=== PATIENT | female | born 1955 | race Caucasian/White ===

== ENCOUNTER 2017-08-04 07:30 | Inpatient (IN) | payer MEDICARE, MEDICAID ==
[~2017-08-04 07:30] MED LIST: Buffered Lidocaine 0.9% SYRIN* 5 ML/SYR SYRINGE INTRADERM ONE; Dexamethasone IV* 4 MG/ML 1 ML (4 MG) IV SLOW PU ONE; Famotidine IV* 10 MG/ML 2 ML (20 mg) IV ONE
[2017-08-04] MEDS ORDERED: Dexamethasone IV* 4 MG/ML 1 ML (4 MG) ONE (08:24)
[2017-08-04] MEDS ORDERED: ceFAZolin 1 GM in Dextrose (*) 1 GM/50 ML BAG IVPB ONE (08:24)
[2017-08-04] MEDS ORDERED: Famotidine IV* 10 MG/ML 2 ML (20 mg) ONE (08:24)
[2017-08-04] MEDS ORDERED: Clindamycin 900 MG IVPREMIX(* 900 MG/50 ML SDV IV ONE (08:25)
[2017-08-04] MEDS ORDERED: ceFAZolin 2 GM PREMIX (*) 2 GM/50 ML BAG IVPB ONE (08:25)
[2017-08-04] MEDS ORDERED: Heparin VIAL(*) 5000 UNITS/ML VIAL (FIVE THOUSAND) ONE (08:36)
[2017-08-04] MEDS ORDERED: fentaNYL* 50 MCG/ML 5 ML VIAL (250 MCG VIAL) ONE (10:26)
[2017-08-04] MEDS ORDERED: Midazolam* 1 MG/ML 5 ML VIAL (5 MG) ONE (10:26)
[2017-08-04] MEDS ORDERED: Atracurium* 10 MG/ML 10 ML VIAL ONE (10:26)
[2017-08-04] MEDS ORDERED: Ondansetron INJ* 2 MG/ML VIAL ONE (10:27)
[2017-08-04] MEDS ORDERED: Propofol* 10 MG/ML 20 ML BTL IV PUSH ONE (10:27)
[2017-08-04] MEDS ORDERED: Lidocaine 2% PF * 5 ML VIAL ONE (10:27)
[2017-08-04] MEDS ORDERED: Ketorolac INJ* 30 MG/ML 1 ML VIAL ONE (10:27)
[2017-08-04] MEDS ORDERED: Bupivacaine 0.25% SDV* 30 ML ONE (11:04)
[2017-08-04] MEDS ORDERED: Methylene Blue 0.5 %* 50 MG/10 ML AMP IV ONE (11:04)
[2017-08-04] MEDS ORDERED: Glycopyrrolate IV* 0.2 MG/ML 1 ML VIAL ONE (11:49)
[2017-08-04] MEDS ORDERED: fentaNYL* 50 MCG/ML 2 ML VIAL (100 MCG VIAL) ONE ×2 (11:57→12:38)
[2017-08-04] MEDS ORDERED: Ondansetron INJ* 2 MG/ML VIAL IV PRN ×2 (12:09→13:16)
[2017-08-04] MEDS ORDERED: Scopolamine 1.5 mg* PATCH TRANSDERM PRN (12:09)
[2017-08-04] MEDS ORDERED: DiMENhydriNATE IV* 50 MG/ML VIAL IV PUSH PRN (12:09)
[2017-08-04] MEDS ORDERED: fentaNYL* 50 MCG/ML 2 ML VIAL (100 MCG VIAL) IV PRN (12:09)
[2017-08-04] MEDS ORDERED: HYDROmorphone INJ* 1 MG/ML CARPUJECT SYRINGE IV PRN (12:09)
[2017-08-04] MEDS ORDERED: Naloxone* 0.4 MG/ML 1 ML VIAL IV PRN (12:09)
[2017-08-04] MEDS ORDERED: diPHENhydraMINE IV* 50 MG/ML 1 ml VIAL (BENADRYL) SLOW PUSH PRN (13:16)
[2017-08-04] MEDS ORDERED: Acetaminophen ADULT LIQ* 650 MG/20.3 ML UDC PO PRN (13:16)
[2017-08-04] MEDS ORDERED: Dextrose 50% Syringe 50 ML* 25 GM/50 ML SYRINGE IV PUSH PRN (13:22)
--- NOTE | 2017-08-04 13:26 | OP ---
Operative Report - Blank - Operative Report Date of Operation: 08/04/17 Note: Pre-op: Morbid obesity Post-op: Same Procedure: Laparoscopic sleeve gastrectomy Surgeon: Dr. Velasquez Risk Management Director: ROSHAN Cortez Anesthesia: GETA Fluids: LR 1,500 cc Drains: None Catheter: None Specimen: Portion of stomach Findings: See dictated op note
[2017-08-04] MEDS: Ketorolac INJ* 30 MG/ML 1 ML VIAL IV PRN ×2 (16:37→22:49)
[2017-08-04] MEDS: Insulin LISPRO* 1 UNITS UNIT SUBCUT SCH (18:06)
[2017-08-04] MEDS: HYDROmorphone INJ* 2 MG/ML CARPUJECT SYRINGE IV PRN (18:45)
[2017-08-04] MEDS: Heparin VIAL(*) 5000 UNITS/ML VIAL (FIVE THOUSAND) SUBCUT SCH (21:43)
[2017-08-04] MEDS: Famotidine IV* 10 MG/ML 2 ML (20 mg) IV SLOW PU SCH (21:46)
[2017-08-05] MEDS: Insulin LISPRO* 1 UNITS UNIT SUBCUT SCH ×4 (00:14→18:33)
[2017-08-05] MEDS: HYDROmorphone INJ* 2 MG/ML CARPUJECT SYRINGE IV PRN ×2 (00:20→16:57)
[2017-08-05] MEDS: Ketorolac INJ* 30 MG/ML 1 ML VIAL IV PRN (04:37)
[2017-08-05] MEDS: Heparin VIAL(*) 5000 UNITS/ML VIAL (FIVE THOUSAND) SUBCUT SCH ×3 (06:13→21:07)
--- NOTE | 2017-08-05 08:38 | SURGPN ---
Subjective - Introduction -: Admitted on: 08/04/2017 Patient's surgical date: 08/04/2017 Procedure completed: Laparoscopic sleeve gastrectomy - Medications -: Active Medications Generic Name Dose Route Start Last Admin Trade Name Freq PRN Reason Stop Dose Admin Acetaminophen 650 mg 08/04/17 13:16 Tylenol Adult Liq* PO Q6H PRN Temp > 101 F Or Mild Pain Hydrocodone Bitart/Acetaminophen 15 ml 08/04/17 13:16 Nortab 7.5/325 Liq* PO Q6H PRN PAIN Buspirone HCl 15 mg 08/05/17 09:00 Buspar Tab * PO QID PATRICE Dextrose 12.5 gm 08/04/17 13:22 D50w Syringe 50 Ml* IV PUSH .FOR FS < 60 - SS PRN FS < 60 Diphenhydramine HCl 25 mg 08/04/17 13:16 Benadryl Iv* SLOW PUSH Q6H PRN ITCHING Famotidine 20 mg 08/04/17 21:00 08/04/17 21:46 Pepcid Iv* IV SLOW PU 20 mg BID PATRICE Administration Gabapentin 300 mg 08/05/17 09:00 Neurontin Cap(*) PO TID PATRICE Heparin Sodium (Porcine) 5,000 units 08/04/17 22:00 08/05/17 06:13 Heparin Vial(*) SUBCUT 5,000 units Q8HR PATRICE Administration Hydromorphone HCl 0.5 mg 08/04/17 13:16 08/05/17 00:20 Dilaudid Inj* IV 0.5 mg Q3H PRN Administration PAIN Potassium Chloride/Dextrose 1,000 mls @ 125 mls/hr 08/05/17 13:19 D5w 1/2 Ns Kcl 20 Meq 1000 Ml* IV PER RATE PATRICE Lactated Ringer's 1,000 mls @ 150 mls/hr 08/04/17 14:00 08/05/17 04:45 Lactated Ringers 1000 Ml Bag* IV 08/05/17 13:19 150 mls/hr PER RATE PATRICE Administration Insulin Human Lispro 0 units 08/04/17 18:00 08/05/17 06:14 Humalog* SUBCUT 2 unit Q6HR PATRICE Administration Protocol Ketorolac Tromethamine 30 mg 08/04/17 13:16 08/05/17 04:37 Toradol Inj* IV 08/06/17 13:19 30 mg Q6H PRN Administration PAIN Non-Formulary Medication 150 mg 08/05/17 09:00 Bupropion Tab* PO BID PATRICE Ondansetron HCl 4 mg 08/04/17 13:16 08/04/17 18:43 Zofran Inj* IV 4 mg Q6H PRN Administration NAUSEA/VOMITING Pharmacy Profile Note 1 note 08/07/17 06:00 Scopolamine Patch Remove* PATCH OFF 08/07/17 06:01 0600 ONE - Comments Comments: Reports feeling better this AM. Patient was seen and examined with Dr. Vleasquez present at bedside. She had a tough time sleeping last night due to back pain. She usually sleep on a recliner chair at home. Denies abdominal pain, nausea, vomiting, fever or chills. Has been ambulating around the [place]. Feels anxious at times, would like to resume her anxiety meds. Objective - Objective -: Awake and alert, sitting on her chair. Appears comfortable and in NAD. - Intake and Output -: Intake & Output 08/03/17 08/04/17 08/05/17 08/06/17 06:59 06:59 06:59 06:59 Intake Total 3666 Output Total 50 50 Balance 3616 -50 Weight 318 lb Intake: IV Fluids 3666 LR 3666 Oral 0 Output: Urine 50 50 Other: Estimated Void Large # Bowel Movements 0 # Voids 1 Patient has urinary incontinence. Had multiple wet pads due to coughing. Urinary output was difficult to estimate last night. Surgical Physical Exam - Comments -: Vitals reviewed, Tmax 99.1, HR 90s over night, 76 this AM Lungs CTA bilat. Heart RRR, no murmurs Abdomen soft, NT, ND. Incisions clean, dry and intact. No guarding, rigidity or rebound tenderness. Ext. without edema POC glucose checks reviewed, patient covered with Lispro per sliding scale Assessment and Plan - Assessment -: A 61 y/o female, POD#1, s/p laparoscopic sleeve gastrectomy, doing well. - Plan Additional Comments: Continue to ambulate as tolerated Bariatric clear liquids today Will resume her Buspar and Gabapentin Home in AM 08/06
[2017-08-05] MEDS: Gabapentin CAP(*) 300 MG PO SCH ×3 (09:23→21:00)
[2017-08-05] MEDS: Famotidine IV* 10 MG/ML 2 ML (20 mg) IV SLOW PU SCH ×2 (09:34→21:01)
[2017-08-05] MEDS: busPIRone TAB* 15 MG PO SCH ×4 (09:34→21:01)
[2017-08-05] MEDS: buPROPion SR TAB.SR* 150 MG PO SCH ×2 (09:34→21:00)
[2017-08-05] MEDS: D5W 1/2 NS KCl 20 Meq 1000 ML* 1,000 ML IV SCH ×2 (11:25→19:17)
[2017-08-05] MEDS: HYDROcodone/ACET. 7.5/325 LIQ* 15 ML UDC PO PRN ×2 (12:41→21:25)
--- NOTE | 2017-08-05 14:24 | OP ---
CC: Dr. Josselyn Esquivel; [facility] * DATE OF OPERATION: 08/04/17 - ROOM #353 DATE OF : 57 SURGEON: Patrick Velasquez MD MARINE DIESEL MECHANIC: ROSHAN Carlos ANESTHESIOLOGIST: Dr. Montoya. ANESTHESIA: General anesthesia. PRE-OP DIAGNOSES: Clinically severe obesity, diabetes, hypertension, hypercholesterolemia. POST-OP DIAGNOSES: Clinically severe obesity, diabetes, hypertension, hypercholesterolemia. OPERATIVE PROCEDURE: Laparoscopic sleeve gastrectomy. INDICATIONS: Ms. Grant is a 61-year-old female worked up as an outpatient with diagnosis of clinically severe obesity, presented on same day of surgery for laparoscopic sleeve gastrectomy. ESTIMATED BLOOD LOSS: Minimal blood loss. FLUIDS: 1500 cc of crystalloid fluid given. SPECIMEN: Portion of stomach. DESCRIPTION OF PROCEDURE: The patient was identified in the preoperative area. The case was discussed with her, consent was signed. She was marked and taken to the operating room and placed on the operating table in supine position. Preoperative antibiotics were given. Sequential devices were placed on bilateral lower extremities. General anesthesia was induced. The patient's abdomen was prepped and draped in standard surgical fashion and a time-out was performed. Staying away from the indurated panniculus, we made a right upper quadrant incision at the site, two fingerbreadths below the costal margin and the mid clavicular line. This was deepened down to the fascia, which was elevated and a Veress needle was inserted. Abdomen was allowed to insufflate to a pressure of 50 mmHg. The patient tolerated the insufflation well. An upper midline incision was made and 12 mm trocar was inserted through this. Camera was placed and we reviewed the abdomen. The Veress needle was then removed and it showed no injury of underlying structures. We then placed two 5 mm in the left upper quadrant and 12 mm in the right upper quadrant. Table was placed in a steep reverse Trendelenburg. The liver appeared somewhat bulky along with the spleen, but this liver was retracted out of the way with a Ildefonso retractor inserted through a subxiphoid incision and we could see gastroesophageal fat pad. This fat pad was grasped and retracted to his right lower quadrant and blunt dissection was carried out to expose the left enrike. Next, the lesser sac was entered from 6 cm proximal to the pylorus along the greater curvature. We took the vasculature of the greater curvature right up to the previously dissected area. Posterior attachments were similarly taken until we completely rotated the stomach on its axis. We did remove an enlarged fat pad at the top of the stomach. This was fully ligated and we placed an Endoloop around it so that we could retrieve it later as it would not fit through the trocars. Next, a sleeve stomach was created using 60 mm purple ALEX stapling with reinforcements and doing this over a 40-[place] bougie. We started our staple line 6 cm proximal to the pylorus along the greater curvature, extending this towards the incisura, but making sure the bougie was in place prior to firing this. Additional loads were fired, hugging the bougie right up to our initial dissection site. The stomach was fully transected, the bougie was removed. Hemostasis was excellent. The staple line appeared intact without corkscrewing. We did place a clip at the area of the first staple line on the stomach's mesentery, although this bleeding had stopped already. The resected stomach was then placed in an endoscopic retrieval bag along with the piece of fat pad, which was then brought out through the right upper quadrant port site after dilating the port site. This was passed off as specimen. We then closed it with a Weck fascial closure device using an 0 Polysorb stitch. The abdomen was allowed to collapse. The Ildefonso retractor was removed under direct vision. Again, hemostasis was excellent and all 5 skin incisions were reapproximated with 4-0 Monocryl subcuticular sutures. Steri-Strips and sterile dressings were applied. The patient tolerated the procedure well and was transferred to the PACU in stable condition. [id number]/[facility] #: [id number] LILLI
[2017-08-06] MEDS: Insulin LISPRO* 1 UNITS UNIT SUBCUT SCH ×2 (00:35→05:02)
--- NOTE | 2017-08-06 02:29 | CONS ---
CONSULTATION NOTE: DATE OF CONSULT: 08/05/17 REFERRING PHYSICIAN: Patrick Velasquez MD PRIMARY CARE PROVIDER: Dr. Esquivel. ATTENDING PHYSICIAN: Patrick Velasquez MD REASON FOR CONSULT: Postoperative medical management of diabetes and hypertension. HISTORY OF PRESENT ILLNESS: This is a very pleasant 61-year-old female patient who presented to Dr. Velasquez seeking bariatric surgery. Patient has a BMI of 56.3. She has failed conservative measures and weight management at home. Patient has some degenerative chronic conditions. PAST MEDICAL HISTORY: Includes hypertension, insulin-dependent diabetes mellitus, morbid obesity, hyperlipidemia, depression, chronic pain secondary to osteoarthritis, and peripheral neuropathy. PAST SURGICAL HISTORY: Significant for appendectomy and tubal ligation. MEDICATIONS: At home, include: 1. Telmisartan 40 mg daily. 2. Multivitamin 1 tablet daily. 3. Colace 100 mg as needed. 4. Atorvastatin 80 mg q.h.s. 5. VESIcare 5 mg daily. 6. Loratadine 10 mg q.h.s. 7. Vitamin D3 200 units a day. 8. Buspirone 15 mg 4 times a day. 9. Wellbutrin XL 300 mg daily. 10. Humalog sliding scale. 11. Levemir FlexTouch 135 units 2 times a day. 12. Gabapentin 300 mg 2 times a day. 13. Furosemide 20 mg daily. 14. Baby aspirin 81 mg daily. 15. Fluticasone propionate 50 mcg each nostril 2 times a day. 16. Bydureon 2 mg once weekly. 17. Extra Strength Tylenol 500 mg as needed for pain. ALLERGIES: IBUPROFEN. FAMILY HISTORY: Father with diabetes, hypertension, mental illness, diabetes type 2, and Alzheimer's disease. Mother with obesity, hypertension. SOCIAL HISTORY: Patient is what she considers to be a social smoker. Denies alcohol. Denies any illicit drug use. The patient is single. Lives with daughter and granddaughter and is retired. REVIEW OF SYSTEMS: Patient is not complaining of any fever, fatigue, or chills. She does not have any shortness of breath or chest pain. She did have some abdominal pain earlier for which she received narcotic pain medication, which is currently relieved. Pain is 3/10. Denies any nausea or vomiting. No diarrhea or constipation. No current arthralgias or myalgias and no additional constitutional complaints. PHYSICAL EXAM: Patient is alert and well appearing, out of bed to chair. Vital signs are currently - blood pressure 143/52, heart rate 72, respiratory rate 16, O2 saturation 97% on room air, temperature is 98.9. HEENT: Patient is atraumatic, normocephalic. PERRLA with nonicteric sclerae. Neck is supple, nontender. No thyromegaly appreciated. No carotid bruits noted. Cardiovascular: S1, S2 present. Rate and rhythm are regular. No murmurs, gallops, or rubs. Lungs are clear bilaterally to auscultation. Mildly diminished at the bases with no wheezing, rhonchi, or rales. Abdomen is soft, mildly tender in the epigastrium. Positive bowel sounds in all 4 quadrants. Very obese. is deferred. Musculoskeletal: There is no clubbing and no cyanosis. She has bilateral lower extremity edema with some discoloration in the anterior shins, approximately half way up to the calf. This is her baseline per her report. She has +2 distal pulses palpable. She has steady gait with ambulation. Neurologic: She is grossly intact with no focal deficits. Psychiatric: She is cooperative and appropriate. DIAGNOSTIC STUDIES/LAB DATA: Preoperative labs dated 07/21/17: WBC 7.5, RBC 4.17, hemoglobin 12.2, hematocrit 37, platelets 203. Sodium 138, potassium 4.2 , chloride 103, CO2 28, BUN 16, creatinine 1.18, GFR 46.7, glucose 97, A1c 6.0, iron 87, TIBC 341, ferritin 95, calcium 9.5. Bilirubin 0.50, AST 17, ALT 15, alk phos 60. Total protein 6.7, albumin 4.0, globulin 2.7. BNP is 9. Triglycerides 244, cholesterol 137, LDL 47, HDL 40.9. TSH is 2.34. Cortisol level is 5.8. No urinalysis available. Thyroid antibodies 0.8. IMPRESSION: This is a 61-year-old morbidly obese female postop day 0 from gastric sleeve surgery. PLAN/RECOMMENDATIONS: As patient is on the bariatric liquid diet currently, I feel we should hold her long-acting insulin until she is back on solid food. She should currently have insulin sliding scale with lispro with Accu-Cheks a.c. , h.s. Primary plan of care as per the surgical service, however, she is medically stable to participate in ab sheryl activity as warranted. She can have her gabapentin and her depression medications as scheduled. Would recommend holding aspirin, which I believe she has been holding for 2 weeks since prior to the surgery. DIET: She is on the bariatric clear liquid diet, that can be advanced as per surgery. The rest of the patient's course will be determined by further diagnostics, laboratories, and any other input from other providers as warranted during this admission. We thank you very kindly for the courtesy of this consult and we agree to follow the patient along with you. LOYDA TREVINO, NOY [id number]/[facility] #: [id number] LILLI
[2017-08-06] MEDS: D5W 1/2 NS KCl 20 Meq 1000 ML* 1,000 ML IV SCH (03:23)
[2017-08-06] MEDS: Heparin VIAL(*) 5000 UNITS/ML VIAL (FIVE THOUSAND) SUBCUT SCH (05:57)
[2017-08-06] MEDS: buPROPion SR TAB.SR* 150 MG PO SCH (07:39)
[2017-08-06] MEDS: Famotidine IV* 10 MG/ML 2 ML (20 mg) IV SLOW PU SCH (07:39)
[2017-08-06] MEDS: busPIRone TAB* 15 MG PO SCH (07:39)
[2017-08-06] MEDS: Gabapentin CAP(*) 300 MG PO SCH (07:40)
[2017-08-06] MEDS: HYDROcodone/ACET. 7.5/325 LIQ* 15 ML UDC PO PRN (07:44)
[2017-08-06 10:34] VITALS: BP 140/54
--- NOTE | 2017-08-06 10:46 | PN ---
Progress Note - Progress Note Date of Service: 08/06/17 SOAP: Subjective: Patient seen and examined at bedside. Reports feeling a little "anxious", but denies any abdominal pain, nausea or vomiting. Tolerating clear liquids, good urine output. Ambulatory, slept better last night. She has no other complaints. Objective: Awake and alert, comfortable in bed, in NAD VSS, afebrile Lungs CTA bilat. Heart RRR, no murmurs Abdomen soft, NT, ND. Incisions C/D/I. No guarding or rigidity. Ext. without edema Assessment: POD#2, s/p laparoscopic sleeve gastrectomy, doing well. Plan: D/C to home today Resume all meds at home as prescribed F/U with Dr. Velasquez next week as scheduled
--- NOTE | 2017-08-06 11:18 | PN ---
Progress Note - Progress Note Date of Service: 08/06/17 SOAP: Subjective: Pt sen and evaluated with NPP. Pt doing well. Ready to go home. Minimal pain. Tolerating liquids Appreciate hospitalist note Objective: af vss uo good see NPP note Assessment: POD 2 lap gastric bypass Plan: d/c home f/u Wednesday
--- NOTE | 2017-08-07 01:41 | DS ---
CC: Dr. Josselyn Esquivel * DISCHARGE SUMMARY: DATE OF ADMISSION: 08/04/17. DATE OF DISCHARGE: 08/06/17. PATIENT OF: Dr. Patrick Velasquez. ADMISSION DIAGNOSIS: Morbid obesity. DISCHARGE DIAGNOSIS: Morbid obesity. ADMITTING PHYSICIAN: Dr. Patrick Velasquez.* (DICTATED BY ROSHAN MARIE) CONSULTATION: Radha Draper, nurse practitioner. PROCEDURE: Laparoscopic sleeve gastrectomy on 08/04/17. BRIEF MEDICAL HISTORY: Ms. Grant is a pleasant 61-year-old female who has been followed at the [facility] regarding bariatric surgery. The patient suffered from excessive body weight most of her adult life. She had tried multiple attempts to lose weight using dietary and exercise regimen that failed to maintain her weight loss. Given her morbid obesity, the patient had multiple comorbidities including insulin-dependent diabetes mellitus, hyper-lipidemia, coronary artery disease, hypertension, chronic back pain as well as multiple, anxiety and depression issues. The patient was seen at the [facility] for bariatric and metabolic services and was found to be a good candidate for a laparoscopic sleeve gastrectomy to be performed on a later date. HOSPITAL COURSE: The patient was taken to the operating room on 08/04/17, where she underwent laparoscopic sleeve gastrectomy that was essentially unremarkable. After recovery, she was transferred to the surgical floor for observation. She did relatively well with only mild incisional discomfort that was well tolerated using pain medicine as needed. She was ambulatory out of bed and in a stable condition. She denied any nausea, vomiting, fever or chills. She is still anxious and was not able to sleep the first night in the hospital for which all her antianxiety medications were resumed on the following day. She continued to improve and she was started on clear liquid diet on the first day post-operatively. She tolerated the clear liquid diet very well and continued to have a good urinary output. On the second day postoperatively, she continued to improve and was ambulatory out of bed. Her abdominal exam was essentially unremarkable and the plan for her to be discharged home today and will be followed up at the bariatric center next week with Dr. Velasquez. DISCHARGE MEDICATIONS: Include: 1. Acetaminophen 1 to 2 tablets q.6 hours as needed for arthritic aches and pains. 2. Lipitor 80 mg p.o. q.h.s. 3. BuSpar 15 mg 4 times a day. 4. Colace 100 mg p.o. q.p.m. as needed for constipation. 5. Lasix 20 mg p.o. daily. 6. Gabapentin 300 mg p.o. t.i.d. 7. Lortab Elixir 15 mL p.o. q.6 hours as needed for pain. 8. Humalog insulin coverage per sliding scale q.a.c and q.h.s. 9. Chewable multivitamin 1 tab daily. 10. VESIcare 5 mg p.o. daily. 11. Micardis 40 mg p.o. daily. PROBLEM LIST: Morbid obesity, status post laparoscopic sleeve gastrectomy on . ROSHAN MARIE [id number]/[facility] #: [id number] MTDD
[2017-08-07] MEDS ORDERED: Scopolamine PATCH Remove* 1 NOTE MISC PATCH OFF ONE (06:00)
== END 2017-08-06 11:30 | disposition home or self-care (01) | DRG 621 ==
LOC: AA 08:20 → SSU 15:26
PROVIDERS: ADMIT Surgery; ATTEND Surgery
PROC: 0DB64Z3 Excision of Stomach, Percutaneous Endoscopic Approach, Vertical (ICD-10-PCS; principal; 2017-08-04 10:45)
DX: E66.01 Morbid (severe) obesity due to excess calories (principal); I25.10 Atherosclerotic heart disease of native coronary artery without angina pectoris; I10 Essential (primary) hypertension; G89.29 Other chronic pain; E78.00 Pure hypercholesterolemia, unspecified; M54.9 Dorsalgia, unspecified; F41.9 Anxiety disorder, unspecified; F32.9 Major depressive disorder, single episode, unspecified; M19.90 Unspecified osteoarthritis, unspecified site; E11.42 Type 2 diabetes mellitus with diabetic polyneuropathy; Z98.51 Tubal ligation status; Z83.3 Family history of diabetes mellitus; Z82.49 Family history of ischemic heart disease and other diseases of the circulatory system; Z81.8 Family history of other mental and behavioral disorders; Z88.6 Allergy status to analgesic agent; Z79.4 Long term (current) use of insulin; Z82.0 Family history of epilepsy and other diseases of the nervous system; Z87.891 Personal history of nicotine dependence; Z68.43 Body mass index [BMI] 50.0-59.9, adult
CPT/HCPCS: 43775; 88307; A9270-GY; J0690; J1100; J1170; J1644; J1885; J2250; J2405; J2704; J3010

== ENCOUNTER 2019-03-29 23:22 | Inpatient (IN) | payer MEDICAID, MEDICARE ==
--- NOTE | 2019-03-30 00:23 | ED ---
Abdominal Pain/Female - HPI Summary HPI Summary: 63 year old F presenting to [facility] accompanied by sister complains of intermittent bilateral lower abdominal pain described as cramping rated 8/10 in severity currently x 3 weeks. Each episode of abdominal pain usually lasts 1-2 minutes. States she is able to sleep at night. No specific things bring on the abdominal pain. Has been seeing her primary care provider in [place]. Unspecified dx for her sx. Several minutes prior to arrival, the pain started radiating to her left flank which has never happened before. Sister reports decreased appetite, and "thin/runny" bowel movements. No nausea/vomiting. No recent travel except flight from [place] to [place] days ago. Called Dr. Velasquez prior to arrival who referred patient to ED. Symptoms aggravated by nothing. Symptoms alleviated by nothing. Abdominal surgical hx: appendectomy, gastric sleeve with Dr. Velasquez in July 2017. Medications reviewed. - History of Current Complaint Chief Complaint: EDFlankPain Stated Complaint: CRAMPING, L SIDED FLANK PAIN PER PT Time Seen by Provider: 03/30/19 00:14 Hx Obtained From: Patient, Family/Programming Director - sister Hx Last Menstrual Period: 2010 ?: No Onset/Duration: Lasting Weeks - 3, Still Present, Worse Since - minutes prior to arrival Severity Initially: Moderate - 5 Severity Currently: Severe Pain Intensity: 8 Pain Scale Used: 0-10 Numeric Location: Discrete At: LUQ, Discrete At: LLQ Radiates: Yes Radiates to: Flank - left Character: Cramping Aggravating Factor(s): Nothing Alleviating Factor(s): Nothing Associated Signs and Symptoms: Positive: Negative - nausea/vomiting, Other: - decreased appetite, and "thin/runny" bowel movements Allergies/Adverse Reactions: Allergies Allergy/AdvReac Type Severity Reaction Status Date / Time ibuprofen Allergy STATES WAS Verified 03/29/19 23:24 TOLD TO AVOID DUE TO DIABETES Home Medications: Home Medications Cyanocobalamin TAB* [Vitamin B12 TAB*] 500 mcg PO DAILY 03/30/19 [History Confirmed 03/30/19] Metformin HCl 250 mg PO DAILY 03/30/19 [History Confirmed 03/30/19] Omeprazole 40 mg PO DAILY 03/30/19 [History Confirmed 03/30/19] Oxybutynin TAB* [Ditropan TAB*] 10 mg PO DAILY 03/30/19 [History Confirmed 03/30] PMH/Surg Hx/FS Hx/Imm Hx Endocrine/Hematology History: Reports: Hx Diabetes - Type 2 Cardiovascular History: Reports: Hx Hypercholesterolemia, Hx Hypertension Denies: Hx Angina Musculoskeletal History: Reports: Hx Arthritis - LEFT KNEE, RIGHT SHOULDER Sensory History: Reports: Hx Contacts or Glasses - GLASSES Denies: Hx Hearing Aid Opthamlomology History: Reports: Hx Contacts or Glasses - GLASSES Psychiatric History: Reports: Hx Anxiety - ON MEDICATION FOR/ SEES A THERAPIST, Hx Depression - ON MEDICATION FOR/ SEES A THERAPIST - Surgical History Surgery Procedure, Year, and Place: Appendectomy. Tubal Ligation. gastric sleeve, Dr. Velasquez, July 2017 Hx Anesthesia Reactions: Yes - TEARFUL-FAMILY SUPPORT WHEN WAKING UP Infectious Disease History: No Infectious Disease History: Denies: Traveled Outside the [place] in Last 30 Days - Family History Known Family History: Positive: Cardiac Disease - Social History Alcohol Use: None Hx Substance Use: Yes Substance Use Type: Reports: Prescribed Hx Tobacco Use: Yes Smoking Status (MU): Former Smoker Amount Used/How Often: SOCIALLY Have You Smoked in the Last Year: No Review of Systems Negative: Fever Positive: Abdominal Pain, Other - decreased appetite, "thin/runny" bowel movements. Negative: Vomiting, Nausea All Other Systems Reviewed And Are Negative: Yes Physical Exam - Summary Physical Exam Summary: Appearance: Well-appearing, Well-nourished, lying in bed comfortably Skin: Warm, dry, no obvious rash Eyes: sclera anicteric, no conjunctival pallor ENT: mucous membranes moist, pharynx appears normal Neck: Supple, nontender Respiratory: Clear to auscultation, no signs of respiratory distress Cardiovascular: Normal S1, S2. No murmurs. Normal distal pulses in tibial and radial bilaterally. Abdomen: Soft, nontender, normal active bowel sounds present Musculoskeletal: Normal, Strength/ROM Intact Neurological: A&Ox3, awake and alert, mentation is normal, speech is fluent and appropriate Psychiatric: affect is normal, does not appear anxious or depressed Triage Information Reviewed: Yes Vital Signs On Initial Exam: Initial Vitals Temp Pulse Resp BP Pulse Ox 98.7 F 82 18 160/99 99 03/29/19 23:24 03/29/19 23:24 03/29/19 23:24 03/29/19 23:24 03/29/19 23:24 Vital Signs Reviewed: Yes Procedures - Sedation Patient Received Moderate/Deep Sedation with Procedure: No Diagnostics - Vital Signs Vital Signs Temp Pulse Resp BP Pulse Ox 03/29/19 23:24 98.7 F 82 18 160/99 99 - Laboratory Result Diagrams: 03/31/19 07:00 04/01/19 09:11 Lab Statement: Any lab studies that have been ordered have been reviewed, and results considered in the medical decision making process. - CT ABD/PEL CT Interpretation Completed By: Radiologist Summary of CT Findings: Abnormal distention of the sigmoid colon. The distal sigmoid colon makes one and half turns in a counterclockwise direction as it attaches to the rectum. The rectum is empty. Moderate distention of the proximal colon and filled with semisolid stool and air. No evidence of perforation. No walled off fluid collection. ED physician has reviewed this report. Re-Evaluation - Re-Evaluation First Eval Re-Evaluation Time: 03:42 Comment: informed of CT findings Abdominal Pain Fem Course/Dx - Course Course Of Treatment: 63 year old F complains of random, intermittent bilateral lower abdominal pain, described as cramping, each episode lasting 1-2 minutes x3 weeks. Several minutes prior to arrival, the pain started radiating to her left flank which has never happened before. Sister reports decreased appetite, and "thin/runny" bowel movements. Called Dr. Velasquez prior to arrival who referred patient to ED. Abdominal surgical hx: appendectomy, gastric sleeve with Dr. Velasquez in July 2017. Physical exam findings unremarkable. Bloodwork results with no significant abnormalities except for potassium 3.8, glucose 133 , lipase <10. Urinalysis results with no significant abnormalities except for trace ketones, positive nitrate, leukocyte esterase 2+, WBC 3+, squamous epithelial cells, bacteria 1+, hyaline casts. CT Abd/Pel shows, per radiologist : Abnormal distention of the sigmoid colon. The distal sigmoid colon makes one and half turns in a counterclockwise direction as it attaches to the rectum. The rectum is empty. Moderate distention of the proximal colon and filled with semisolid stool and air. No evidence of perforation. No walled off fluid collection. In the ED course, the patient was given dicyclomine [address] Velasquez, surgery, recommended consulting GI if there is concern for sigmoid volvulus. Dr. Conway, GI, recommended admission and stated GI will see patient in morning. Dr. Bhandari, hospitalist, agrees to admit patient. - Diagnoses Provider Diagnoses: Lower abdominal pain, Sigmoid volvulus - Provider Notifications Discussed Care Of Patient With: Patrick Velasquez Time Discussed With Above Provider: 03:33 Instructed by Provider To: Other - Dr. Velasquez, surgery, recommends consulting GI if there is concern for sigmoid volvulus. 0338 LOR Brown, states she will review the report, contact [facility], and call us back. 0350 Dr. Conway GI , called back and recommended admission and stated GI will see patient in morning. [id number] Dr. Bhandari, hospitalist, agrees to admit patient. Discharge ED - Sign-Out/Discharge Documenting (check all that apply): Patient Departure - ADMIT - Discharge Plan Condition: Stable Disposition: ADMITTED TO [facility] - Billing Disposition and Condition Condition: STABLE Disposition: Admitted to [facility] - Attestation Statements Document Initiated by Josemanuel: Yes Documenting Scribe: Christina Noonan Provider For Whom Josemanuel is Documenting (Include Credential): Stevan Landis MD Scribe Attestation: I, Christina Noonan, scribed for Stevan Landis MD on 04/03/19 at 0010. Scribe Documentation Reviewed: Yes Provider Attestation: The documentation as recorded by the Christina pack accurately reflects the service I personally performed and the decisions made by me, Stevan Landis MD Status of Scribe Document: Viewed
[2019-03-30 00:24] LABS: Urine Appearance Cloudy; Urine Bilirubin Negative (Negative); Urine Blood Negative (Negative); Urine Color Yellow; Urine Glucose Negative (Negative); Urine Ketones Trace (Negative); Urine Nitrite Positive (Negative); Urine Protein Negative (Negative); Urine Specific Gravity 1.019 (1.010-1.030); Urine Urobilinogen Negative (Negative)
[2019-03-30 00:25] LABS: ABS Eosinophils 0.2 10^3/ul (0-0.6); ABS Monocytes 0.3 10^3/ul (0-0.8); ABS Neutrophils 7.2 10^3/ul (1.5-7.7); Eosinophil % 1.8 %; Hematocrit 36 % (35-47); Hemoglobin 12.4 g/dL (12.0-16.0); Mean Corpuscular HGB Conc 35 g/dL (31-36); Mean Corpuscular Hemoglobin 30 pg (27-31); Mean Corpuscular Volume 87 fL (80-97); Platelet Count 209 10^3/uL (150-450); Red Blood Count 4.11 10^6 /uL (3.70-4.87); Red Cell Distribution Width 15 % (10-15); White Blood Count 8.7 10^3/uL (3.5-10.8)
[2019-03-30 00:26] LABS: Urine Bacteria 1+ (Absent); Urine Red Blood Cell Absent (Absent); Urine Squamous Epithelial Cell Present (Absent); Urine White Blood Cell 3+(>20/hpf) (Absent)
[2019-03-30] MEDS ORDERED: Dicyclomine CAP* 10 MG PO ONE (00:26)
[2019-03-30 00:44] LABS: ALT 23 U/L (7-52); AST 26 U/L (13-39); Albumin 4.1 g/dL (3.2-5.2); Albumin/Globulin Ratio 1.5 (1-3); Alkaline Phosphatase 54 U/L (34-104); Anion Gap 8 mmol/L (2-11); BUN/Creatinine Ratio 13.2 (8-20); Blood Urea Nitrogen 12 mg/dL (6-24); C Reactive Protein 1.76 mg/L (<8.01); CO2 Carbon Dioxide 28 mmol/L (22-32); Calcium 9.2 mg/dL (8.6-10.3); Chloride 103 mmol/L (101-111); EGFR African American 75.8 (>60); EGFR Non-African American 62.6 (>60); Globulin 2.8 g/dL (2-4); Glucose 133 mg/dL (70-100); Potassium 2.8 mmol/L (3.5-5.0); Sodium 139 mmol/L (135-145); Total Protein 6.9 g/dL (6.4-8.9)
[2019-03-30] MEDS ORDERED: Iohexol 300* (CONTRAST) 10 ML SDV IV ONE (01:14)
[2019-03-30] MEDS ORDERED: Morphine INJ* 2 MG/ML 1 ML SYRINGE (TWO MG - NEW SYRINGE VERSION) IV PRN (05:25)
--- NOTE | 2019-03-30 06:14 | HP ---
History of Present Illness - History of Present Illness Reason for Visit: abdominal pain History of Present Illness: 63 yo female with a history of gastric sleeve presented with severe intermittent lower abdominal pain for 3 weeks which caused her to have poor appetite. Her labs were normal but CT scan showed abnormal distention of the sigmoid colon which surgery thought was concerning for volvulus. Surgery recommended a more conservative approach with GI. GI will see the patient in the morning. Review of Systems - Measurements Intake and Output: Intake and Output Last 24 Hours 03/27/19 03/28/19 03/29/19 03/30/19 06:59 06:59 06:59 06:59 Weight 175 lb - Review of Systems Constitutional Symptoms: Positive: Weakness Negative: Weight Gain, Weight Loss, Fatigue, Fever, Night Sweats, Unexplained Falls, Other Dermatology: Negative: Normal, Rash, Skin Lesions, Cancer, Skin Lumps, Other HEENT: Negative: Normal, Change in Hearing, Vertigo, Dental Problems, Tinnitus, Sinus Problem, Other Eyes: Negative: Normal, Change in Vision, Double Vision, Eye Pain, Glaucoma, Cataract, Contacts or Glasses, Other Thyroid: Negative: Normal, Goiter, Thyroid Nodule, Cold Intolerance, Heat Intolerance , Sweatiness, Tremor, Frequent Defecation, Constipation, Palpitations, Primary Hypothyroidism, Primary Hyperthyroidism, Weight Loss, Weight Gain, Change in Skin/Hair, Change in Menstruation, Radiation Exposure, Other Pulmonary: Negative: Normal, Cough, Sputum, Hemoptysis, Wheezing, Respiratory Distress, Shortness of Breath, COPD, Asthma, Exercise Intolerance, Home Oxygen, Other Cardiology: Negative: Normal, Chest Pain, Shortness of Breath, Palpitations, Swelling of Ankles, Peripheral Vascular Dis, Edema, Faintness, Syncope, Claudication, Proximal NocturnalDyspnea, Orthopnoea, Other Gastroenterology: Positive: Abdominal Pain, Nausea, Diarrhea, Change in Bowel Habits Genital - Urinary: Negative: Normal, Dysuria, Hematuria, Polyuria, Nocturia, Other Musculoskeletal: Negative: Joint Pain, Joint Stiffness, Arthritis, Osteoporosis, Low Back Pain , Sciatica, Joint Deformities, Kyphoscoliosis, Other Endocrinology: Negative: Normal, Thyroid Problems, Adrenal Problems, Gonadal Problems, Family Hx Endocrine Disorders, Obesity, Diabetes Mellitus, Hyperglycemia, Hx Hypoglycemia, Diabetic Foot Ulcers, Calluses, Hirsutism, Menstrual Abnormalities , Polydipsia, Polyuria, Gonadal Problems, Gynecomastia, Pituitary disease, Other Hematologic/Lymphatic: Negative: Anemia, Easy Bruising, Hx Leukemia, Hx Lymphoma, Use of Anticoagulant, Use of Antiplatelet Drugs, Other Neurology: Negative: Normal, Headache, Migraines, Change in Vision, Diplopia, Dizziness , Change in Balancing, Change in Coordination, Change in Memory, Change in Speech, Change in Sphincter Function, Change in Walking, Numbness\Paresthesiae, Unexplained Weakness, Hx of Stroke\TIA, Hx of Seizures, Other Psychiatry: Negative: Normal, Depression, Anxiety, Depressed Mood, Anhedonia, Sexual Dysfunction, Weight Change, Guilt Feelings, Tearfulness, Unusual Fatigue, Unusual Anxiety, Suicidal Ideation, Hypomania, Eating Disorders, Other Objective Active Medications: Aspirin (Aspirin Ec Tab*) 81 mg PO QAM [facility] Atorvastatin Calcium (Lipitor*) 80 mg PO QPM [facility] Buspirone HCl (Buspar Tab *) 15 mg PO QID [facility] Heparin Sodium (Porcine) (Heparin Vial(*)) 5,000 units SUBCUT Q8HR [facility] Sodium Chloride (Ns 0.9% 1000 Ml) 1,000 mls @ 75 mls/hr IV PER RATE [facility] Losartan Potassium (Cozaar Tab*) 50 mg PO QAM [facility]; Protocol Morphine Sulfate (Morphine Inj (Syringe))*) 2 mg IV Q4H PRN PRN Reason: PAIN - MILD Last Admin: 03/30/19 06:07 Dose: 2 mg Non-Formulary Medication (Bupropion Tab*) 150 mg PO BID [facility] Vital Signs - 8 hr 03/29/19 03/30/19 03/30/19 23:24 00:12 00:23 Temperature 98.7 F Pulse Rate 82 73 69 Respiratory 18 Rate Blood Pressure 160/99 167/84 (mmHg) O2 Sat by Pulse 99 100 98 Oximetry 03/30/19 03/30/19 03/30/19 00:53 01:00 01:23 Temperature Pulse Rate 67 73 70 Respiratory Rate Blood Pressure 147/72 135/92 (mmHg) O2 Sat by Pulse 98 96 97 Oximetry 03/30/19 03/30/19 03/30/19 01:52 02:05 02:22 Temperature Pulse Rate 63 63 64 Respiratory Rate Blood Pressure 138/76 163/74 (mmHg) O2 Sat by Pulse 97 97 99 Oximetry 03/30/19 03/30/19 03/30/19 02:53 03:00 03:23 Temperature Pulse Rate 75 79 73 Respiratory Rate Blood Pressure 155/80 131/74 (mmHg) O2 Sat by Pulse 98 97 97 Oximetry 03/30/19 03/30/19 03/30/19 03:52 04:00 04:23 Temperature Pulse Rate 77 74 76 Respiratory Rate Blood Pressure 142/90 126/84 (mmHg) O2 Sat by Pulse 97 97 97 Oximetry 03/30/19 03/30/19 03/30/19 04:53 05:00 05:23 Temperature Pulse Rate 61 58 71 Respiratory Rate Blood Pressure 132/66 140/71 (mmHg) O2 Sat by Pulse 95 95 97 Oximetry 03/30/19 03/30/19 03/30/19 05:24 05:33 06:07 Temperature Pulse Rate 67 69 Respiratory 18 Rate Blood Pressure 140/71 140/71 (mmHg) O2 Sat by Pulse 98 96 Oximetry Oxygen Devices in Use Now: None Appearance: looks comfortable Eyes: No Scleral Icterus, PERRLA Ears/Nose/Mouth/Throat: Mucous Membranes Moist Neck: NL Appearance and Movements; NL JVP, Trachea Midline, No Thyroid Enlargement, Masses Respiratory: Symmetrical Chest Expansion and Respiratory Effort, Clear to Auscultation, Clear to Percussion Cardiovascular: NL Sounds; No Murmurs; No JVD, No Edema Abdominal: NL Sounds; No Tenderness; No Distention Lymphatic: No Cervical Adenopathy Skin: No Rash or Ulcers, No Nodules or Sclerosis Neurological: Alert and Oriented x 3 Result Diagrams: 03/30/19 00:17 03/30/19 00:17 Assess/Plan/Problems-Billing Assessment: - Patient Problems (1) Abdominal pain Current Visit: Yes Status: Acute Code(s): R10.9 - UNSPECIFIED ABDOMINAL PAIN SNOMED Code(s): 11230700 Comment: intermittent severe abdominal pain x 3 weeks associated with decreased appetite and diarrhea CT scan showed dilated sigmoid which surgery believes could represent a volvulus surgery recommend a more conservative approach with GI GI will see the pt in the am for consideration of a scope NPO prn morphine for pain (2) HLD (hyperlipidemia) Current Visit: Yes Status: Acute Code(s): E78.5 - HYPERLIPIDEMIA, UNSPECIFIED SNOMED Code(s): 41896179 (3) Diabetes Current Visit: Yes Status: Acute Code(s): E11.9 - TYPE 2 DIABETES MELLITUS WITHOUT COMPLICATIONS SNOMED Code(s): 39595128 Comment: FS Q6H while NPO (4) Full code status Current Visit: Yes Status: Acute Code(s): Z78.9 - OTHER SPECIFIED HEALTH STATUS SNOMED Code(s): 648514678 (5) DVT prophylaxis Current Visit: Yes Status: Acute Code(s): Z29.9 - ENCOUNTER FOR PROPHYLACTIC MEASURES, UNSPECIFIED SNOMED Code(s): 140722956 Comment: heparin sc
[2019-03-30] MEDS: Heparin VIAL(*) 5000 UNITS/ML VIAL (FIVE THOUSAND) SUBCUT SCH ×3 (07:46→20:56)
[2019-03-30] MEDS: Losartan TAB* 25 MG PO SCH (08:36)
[2019-03-30] MEDS: KCL 10 MEQ/50 ML IVPREMIX* 10 MEQ/50 ML BAG IV SCH ×4 (08:37→13:10)
[2019-03-30] MEDS: NS 0.9% 1000 ML** 1,000 ML IV SCH (08:42)
[2019-03-30] MEDS: Aspirin EC TAB* 81 MG TAB.EC PO SCH (09:15)
[2019-03-30] MEDS: busPIRone TAB* 15 MG PO SCH ×4 (09:16→21:19)
[2019-03-30] MEDS: buPROPion SR TAB.SR* 150 MG PO SCH ×2 (09:16→20:52)
[2019-03-30] MEDS ORDERED: fentaNYL* 50 MCG/ML 2 ML VIAL (100 MCG VIAL) ONE (10:17)
[2019-03-30] MEDS ORDERED: Midazolam* 1 MG/ML 10 ML VIAL (10 MG) ONE (10:17)
--- NOTE | 2019-03-30 10:56 | PN ---
Progress Note - Progress Note Date of Service: 03/30/19 Note: GI Unprepped/No sedation Flex sig note Flex sig to distal TV Volvulus with swirl at 15cm, large air decompressed with excellent effect, 2nd swirl at 40. Rotated sigmoid. Appears detorqued. Prep poor, not sufficient for polyp detection. Rectal 14F decompression tube placed across area with good effect. Mucosa with no evidence of ischemic changes Impression: Successful sigmoid volvulus detorsion Rectal 14F tube placed Rec: This is temporizing, suspect high likelihood of reoccurrence Surgical evaluation Needs full colonoscopy as outpatient in [place] Horace Lancaster 03/30/19 [id number]
[2019-03-30] MEDS ORDERED: Magnesium Sulfate 2 GM IV* 2 GM/50 ML BAG IVPB ONE (13:33)
--- NOTE | 2019-03-30 13:42 | PN ---
Subjective Date of Service: 03/30/19 Interval History: patient seen this morning before the flex sigmoidoscopy. She was NPO at that time. No distress and denied any acute abdominal pain. she did reports some LLQ pressure but improved when compared to her previous pain from presentations. s/p flex sig by GI. Past Medical History: Unchanged from Admission Objective Active Medications: Aspirin (Aspirin Ec Tab*) 81 mg PO QAM COUNT [facility]CLUDES [facility] Last Admin: 03/30/19 09:15 Dose: Not Given Atorvastatin Calcium (Lipitor*) 80 mg PO QPM COUNT INCLUDES THE [facility] Bupropion HCl (Wellbutrin Sr Tab*) 150 mg PO BID COUNT INCLUDES THE [facility] Last Admin: 03/30/19 09:16 Dose: Not Given Buspirone HCl (Buspar Tab *) 15 mg PO QID COUNT INCLUDES [facility] Last Admin: 03/30/19 13:24 Dose: 15 mg Heparin Sodium (Porcine) (Heparin Vial(*)) 5,000 units SUBCUT Q8HR COUNT [facility]CLUDES [facility] Last Admin: 03/30/19 13:23 Dose: 5,000 units Sodium Chloride (Ns 0.9% 1000 Ml) 1,000 mls @ 75 mls/hr IV PER RATE COUNT [facility]CLUDES [facility] Last Admin: 03/30/19 08:42 Dose: 75 mls/hr Magnesium Sulfate (Magnesium Sulfate 2 Gm Iv*) 2 gm in 50 mls @ 50 mls/hr IVPB ONCE ONE Stop: 03/30/19 14:32 Ceftriaxone Sodium 1 gm/ (Sodium Chloride) 50 mls @ 200 mls/hr IVPB Q24H COUNT INCLUDES THE [facility] Losartan Potassium (Cozaar Tab*) 50 mg PO QAM COUNT INCLUDES THE [facility]; Protocol Last Admin: 03/30/19 08:36 Dose: 50 mg Morphine Sulfate (Morphine Inj (Syringe))*) 2 mg IV Q4H PRN PRN Reason: PAIN - MILD Last Admin: 03/30/19 06:07 Dose: 2 mg Vital Signs - 8 hr 03/30/19 03/30/19 03/30/19 05:52 06:00 06:07 Temperature Pulse Rate 77 70 Respiratory 18 Rate Blood Pressure 139/76 (mmHg) O2 Sat by Pulse 96 97 Oximetry 03/30/19 03/30/19 03/30/19 06:23 06:36 06:42 Temperature 98.8 F 98.4 F Pulse Rate 65 64 65 Respiratory 16 18 Rate Blood Pressure 129/78 138/73 129/78 (mmHg) O2 Sat by Pulse 96 99 96 Oximetry Oxygen Devices in Use Now: None Appearance: awake, alert no distress. resting comfortably in bed Eyes: No Scleral Icterus, - - EOMI Ears/Nose/Mouth/Throat: NL Teeth, Lips, Gums, Mucous Membranes Moist Neck: NL Appearance and Movements; NL JVP, Trachea Midline Respiratory: Symmetrical Chest Expansion and Respiratory Effort, Clear to Auscultation Cardiovascular: NL Sounds; No Murmurs; No JVD, No Edema Abdominal: NL Sounds; No Tenderness; No Distention, - - no rebound, no tenderness and no guarding Extremities: No Edema Skin: No Rash or Ulcers Neurological: Alert and Oriented x 3 Result Diagrams: 03/30/19 00:17 03/30/19 00:17 Assess/Plan/Problems-Billing Assessment: 63 y/o female presented with abdominal pain secondary to sigmoid volvulus s/p flex-sig volvulus detorsion 03/30/19 - Patient Problems (1) Sigmoid volvulus Current Visit: Yes Status: Acute Comment: - Her abdominal pain secondary to sigmoid volvulus s/p flex-sig volvulus detorsion 03/30/[address] Lancaster - Advance to sip of clear to clear liquid today - follow up progress in am, if stable may be discharged. If it reoccur we will involve surgery. - full colonoscopy once she return to [place] (her home state) (2) Diabetes Current Visit: Yes Status: Acute Code(s): E11.9 - TYPE 2 DIABETES MELLITUS WITHOUT COMPLICATIONS SNOMED Code(s): 11065567 Comment: - Place on Accu check QAC + HS now she is on clear - hold metformin (3) HLD (hyperlipidemia) Current Visit: Yes Status: Acute Code(s): E78.5 - HYPERLIPIDEMIA, UNSPECIFIED SNOMED Code(s): 72378860 Comment: - Continue Atorvastatin 80 mg HS (4) Morbid obesity Current Visit: No Status: Acute Code(s): E66.01 - MORBID (SEVERE) OBESITY DUE TO EXCESS CALORIES SNOMED Code(s): 455569609 Comment: - s/p sleeve - resume her vitamin supplements (5) Hypertension Current Visit: Yes Status: Acute Code(s): I10 - ESSENTIAL (PRIMARY) HYPERTENSION SNOMED Code(s): 08369563 Comment: - Continue ARB losartan 50 mg (micardis 40 mg At home) (6) Anxiety and depression Current Visit: Yes Status: Acute Code(s): F41.9 - ANXIETY DISORDER, UNSPECIFIED; F32.9 - MAJOR DEPRESSIVE DISORDER, SINGLE EPISODE, UNSPECIFIED SNOMED Code(s): 609831974 Comment: - Continue wellbutrin 300 daily and buproprion 15 mg QID (7) DVT prophylaxis Current Visit: Yes Status: Acute Code(s): Z29.9 - ENCOUNTER FOR PROPHYLACTIC MEASURES, UNSPECIFIED SNOMED Code(s): 349138560 Comment: heparin sc
[2019-03-30] MEDS ORDERED: Cetirizine* 10 MG TAB PO PRN (13:45)
[2019-03-30] MEDS ORDERED: Gabapentin CAP(*) 300 MG PO PRN (13:45)
[2019-03-30] MEDS ORDERED: Docusate CAP* 100 MG PO PRN (13:46)
[2019-03-30] MEDS ORDERED: Dextrose 50% VIAL 50 ml IV PUSH PRN (13:48)
[2019-03-30] MEDS: cefTRIAXone(*) 1 GM in NS 0.9% 50 ML* 50 ML IVPB SCH (14:35)
[2019-03-30] MEDS: Insulin LISPRO* 1 UNITS UNIT SUBCUT SCH ×2 (17:26→20:55)
[2019-03-30] MEDS: Atorvastatin* 80 MG TAB PO SCH (17:45)
--- NOTE | 2019-03-30 18:50 | CONS ---
CC: Dr. Patrick Velasquez * CONSULTATION REPORT: DATE OF CONSULT: 03/30/19 REQUESTING PHYSICIAN: Dr. Breen. REASON FOR CONSULT: Sigmoid volvulus. HISTORY OF PRESENT ILLNESS: This is a very pleasant 63-year-old female with a past medical history of gastric bypass done by Dr. Velasquez in July of 2017, presenting to the emergency room with abdominal pain. She states the pain has been predominantly within the left lower quadrant, has been oscillating with peaks and lows over the last 1 month. Her appetite has been affected due to fear of having pain after eating. Her bowel habits have been altered and she has had profuse diarrhea for the last 3 to 4 days. The pain became more severe in intensity last evening, which prompted her to have the evaluation in the emergency room. She denies any black or blood in the stool. Denies any weight loss, weight gain. She denies any fever or chills. She denies any dysphagia, odynophagia. Denies excessive NSAID use. She has never had a colonoscopy; however, she states she had a Cologuard done a few years ago, which was negative. The remainder of the 14-point review of systems is grossly negative. PAST MEDICAL HISTORY: Gastric [place] [address] Velasquez, hypertension, insulin- dependent diabetes mellitus. PAST SURGICAL HISTORY: Appendectomy, tubal ligation, and gastric sleeve. HOME MEDICATIONS: Include: 1. Aspirin. 2. Atorvastatin. 3. Buspirone. 4. Losartan. 5. Bupropion. ALLERGIES: IBUPROFEN. FAMILY HISTORY: Denies any family history of GI cancer or inflammatory bowel disease. SOCIAL HISTORY: Occasional smoking. Denies alcohol use. REVIEW OF SYSTEMS: Remainder of the 14-point review of systems is grossly negative. PHYSICAL EXAM: Vital Signs: Blood pressure 129/78, pulse 65, respiratory rate 16, she is 96% on room air. In general, alert and oriented x3, in no acute distress. HEENT: Atraumatic, normocephalic. Pupils equal, round, reactive to light. Extraocular movements are intact. Conjunctivae are pink. Sclerae are anicteric. Cardiovascular: Regular rate and rhythm. S1, S2. Respiratory: Clear to auscultation bilaterally. Abdomen is soft, moderately distended. Tenderness to palpation in the left lower quadrant and right lower quadrant. Mild guarding on the left. No rebound tenderness. Bowel sounds hypoactive. Extremities: No clubbing, no cyanosis, no edema. Psych: Appropriate mood and affect. DIAGNOSTIC STUDIES/LAB DATA: Hemoglobin is 12.4, platelet count is 209. Potassium was 2.8, creatinine 0.91, magnesium 1.7. She had a CT in the emergency room. The CT report of the abdomen and pelvis reveals abnormal distention of the sigmoid colon. The sigmoid in the distal portion makes a half turn, counterclockwise with concern for volvulus. There is moderate distention of the proximal colon filled with semi-solid stool and air. IMPRESSION: A 63-year-old female with possible sigmoid volvulus. RECOMMENDATIONS: Discussed the risks, benefits, and alternatives. We will plan with unsedated, unprepped flexible sigmoidoscopy with very limited, if none , air insufflation. I discussed the risks, benefits, and alternatives with the patient and she would like to proceed as outlined. If this is indeed a sigmoid volvulus, she may ultimately need surgical correction. If possible, we will plan on leaving a rectal tube in for decompression. [id number]/[facility] #: [id number] [facility] HOSPITALArturo
--- NOTE | 2019-03-31 00:21 | PRO ---
CC: Patrick Velasquez MD * FLEXIBLE SIGMOIDOSCOPY REPORT: DATE OF PROCEDURE: 03/30/19 INDICATION FOR PROCEDURE: Sigmoid volvulus. PROCEDURE PERFORMED: Flexible sigmoidoscopy to distal transverse colon with successful volvulus derotation and decompression and placement of 14-Panamanian rectal tube. MEDICATIONS GIVEN: None. DESCRIPTION OF PROCEDURE: After the flexible sigmoidoscopy procedure including the risks, benefits, and alternatives with the risks not limited to perforation , surgery, missed lesions, and/or were explained to the patient, written informed consent was obtained, IV medication was given, and a rectal exam was performed. The rectal exam was unremarkable. The adult Olympus colonoscope was then inserted into the patient's rectum and advanced very carefully to the distal transverse colon. Two swirls were noted at 15 cm and 40 cm. Past the first at 15 cm, massive distention of the sigmoid colon was encountered. There was no evidence of ischemia at either one of the swirl sites. I was able to pass both of these and then rotate and de-torque the sigmoid colon with good effect. I removed any air that was potentially within that area. Again, the views of the munoz were limited, but no evidence of ischemia. I then inserted a guidewire through this area across the area of the volvulus and slowly withdrew the scope. I then fed a 14-Panamanian rectal tube over the guidewire into place with good effect. I then taped this to the right side of the patient. The scope was then removed from the patient. She tolerated the procedure well. She returned to the recovery room in stable condition. IMPRESSION: 1. Flexible sigmoidoscopy to distal transverse colon. 2. Successful volvulus de-torque and decompression. 3. Successful placement of 14-Panamanian rectal tube. 4. No evidence of ischemia. RECOMMENDATIONS: The sigmoid had a tendency to want to re-torque even after removal of the air and de-torquing it to begin with. I feel this may be high risk for a return of her volvulus condition. We recommend careful monitoring. The rectal tube will likely fall out in the next 18 to 24 hours, would have surgical services continue to follow. I recommend a repeat colonoscopy in 3 to 4 months pending her outcome and that could be done back in [place]. [id number]/[facility] #: [id number] [facility]
[2019-03-31] MEDS: NS 0.9% 1000 ML** 1,000 ML IV SCH (00:25)
[2019-03-31] MEDS: Heparin VIAL(*) 5000 UNITS/ML VIAL (FIVE THOUSAND) SUBCUT SCH ×3 (04:19→20:57)
[2019-03-31] MEDS ORDERED: Acetaminophen TAB* 325 MG PO PRN (07:28)
[2019-03-31] MEDS: Insulin LISPRO* 1 UNITS UNIT SUBCUT SCH ×4 (07:29→20:56)
[2019-03-31 07:36] LABS: ABS Eosinophils 0.2 10^3/ul (0-0.6); ABS Lymphocytes 0.9 10^3/ul (1.0-4.8); ABS Monocytes 0.3 10^3/ul (0-0.8); Eosinophil % 3.7 %; Hematocrit 36 % (35-47); Hemoglobin 12.2 g/dL (12.0-16.0); Lymphocyte % 16.4 %; Mean Corpuscular HGB Conc 34 g/dL (31-36); Mean Corpuscular Hemoglobin 30 pg (27-31); Mean Corpuscular Volume 88 fL (80-97); Mean Platelet Volume 9.1 fL (7.4-10.4); Platelet Count 188 10^3/uL (150-450); Red Blood Count 4.08 10^6 /uL (3.70-4.87); Red Cell Distribution Width 15 % (10-15); White Blood Count 5.3 10^3/uL (3.5-10.8)
[2019-03-31 07:42] LABS: INR 1.01 (0.82-1.09)
[2019-03-31] MEDS: Cholecalciferol TAB* 1000 UNITS PO SCH (07:47)
[2019-03-31] MEDS: Oxybutynin TAB* 5 MG PO SCH (07:47)
[2019-03-31] MEDS: buPROPion SR TAB.SR* 150 MG PO SCH ×2 (07:48→20:57)
[2019-03-31] MEDS: Pantoprazole TAB * 40 MG TAB PO SCH (07:48)
[2019-03-31] MEDS: Multivitamins/Minerals TAB PO SCH (07:48)
[2019-03-31] MEDS: Aspirin EC TAB* 81 MG TAB.EC PO SCH (07:49)
[2019-03-31] MEDS: Losartan TAB* 25 MG PO SCH (07:49)
[2019-03-31] MEDS: busPIRone TAB* 15 MG PO SCH ×4 (07:49→20:57)
[2019-03-31] MEDS: Cyanocobalamin TAB* 500 MCG PO SCH (07:50)
[2019-03-31 08:00] LABS: BUN/Creatinine Ratio 7.6 (8-20); Calcium 8.9 mg/dL (8.6-10.3); EGFR African American 89.2 (>60); EGFR Non-African American 73.7 (>60); Magnesium 1.9 mg/dL (1.9-2.7); Phosphorus 3.9 mg/dL (2.5-5.0); Potassium 2.9 mmol/L (3.5-5.0)
[2019-03-31] MEDS ORDERED: Potassium Chloride* LIQUID 20 MEQ/15 ML UDC PO ONE (08:50)
--- NOTE | 2019-03-31 12:47 | CONS ---
AMENDED REPORT NOW INCLUDES DATE OF CONSULT CC: [facility]; Dr. Horace Lancaster; Primary Care Doctor * SURGICAL CONSULTATION REPORT: DATE OF CONSULT: 03/31/19 HISTORY OF PRESENT ILLNESS: Ms. Grant is a 63-year-old female known to me after undergoing a laparoscopic sleeve gastrectomy a year and half ago. She moved to [place], but came up for the holidays. The patient described a slow onset of lower abdominal pain that worsened on . She called me while I was on service and I instructed her to go to the emergency room. In the emergency room, she was diagnosed with a sigmoid volvulus. There seemed to be no complications of the patient's stomach sleeve. She was then admitted to the hospitalist service and followed by Gastroenterology. These reports were reviewed and GI did a sigmoidoscopy and a reduction of a sigmoid volvulus with placement of a rectal tube. The mucosa was intact and the patient was transferred back to the floor. The patient had significant bowel movements in the overnight period. Her rectal tube fell out and currently the patient is doing well and has no complaints. I see the patient seated in her room close to 24 hours after her decompression. She has no complaints, no nausea, no vomiting. Regarding the gastric surgery, the patient denied reflux. She has done well and has lost close to 170 pounds. She does follow with her primary care doctor , but not a bariatric surgeon in [place]. The patient recently fell while at a magalie event in the [facility]. She suffered with a hematoma that required evacuation. This was done about 3 weeks ago and she has been dealing with a wound since then with dressing changes. The patient states that she did trip, she was somewhat dizzy at that time and felt that she did not have good balance. She does deny any hypotension or low glucose monitoring. The patient does have a history of diabetes, had been on insulin prior to this and now is doing well off insulin and last hemoglobin A1c was less than 5.5 according to the patient. Vital signs are stable. No physical exam performed. IMPRESSION AND PLAN: Sigmoid volvulus, first episode resolved with decompression. I talked about the possibility of recurrence, which she would need to do. I talked about the possible need for a sigmoid colectomy. The patient is aware of this and said that we can perform this, but I would wait for another episode. The patient can resume her previous diet. She will continue with a wound care as prescribed by her doctors in [place] and there is no need for additional followups with our offices. [id number]/[facility] #: [id number] MTDD
[2019-03-31] MEDS: cefTRIAXone(*) 1 GM in NS 0.9% 50 ML* 50 ML IVPB SCH (14:17)
--- NOTE | 2019-03-31 17:18 | PN ---
Subjective Date of Service: 03/31/19 Interval History: patient seen today, feels better, her abdominal improved since the removal of her rectal tube. tolerating her clear liquid. will advance to full liquid and soft mechanical by supper if tolerate diet well Past Medical History: Unchanged from Admission Objective Active Medications: Acetaminophen (Tylenol Tab*) 650 mg PO Q4H PRN PRN Reason: PAIN-MILD/TEMP >/= 100.4 Last Admin: 03/31/19 07:50 Dose: 650 mg Aspirin (Aspirin Ec Tab*) 81 mg PO QAM [facility] Last Admin: 03/31/19 07:49 Dose: 81 mg Atorvastatin Calcium (Lipitor*) 80 mg PO QPM [facility] Last Admin: 03/30/19 17:45 Dose: 80 mg Bupropion HCl (Wellbutrin Sr Tab*) 150 mg PO BID [facility] Last Admin: 03/31/19 07:48 Dose: 150 mg Buspirone HCl (Buspar Tab *) 15 mg PO QID [facility] Last Admin: 03/31/19 14:17 Dose: 15 mg Cetirizine HCl (Zyrtec*) 10 mg PO BEDTIME PRN PRN Reason: Allergy Symptoms Cholecalciferol (Vitamin D Tab*) 5,000 units PO QAM [facility] Last Admin: 03/31/19 07:47 Dose: 5,000 units Cyanocobalamin (Vitamin B12 Tab*) 500 mcg PO DAILY [facility] Last Admin: 03/31/19 07:50 Dose: 500 mcg Dextrose (Dextrose 50% Vial 50 Ml*) 25 ml IV PUSH .FOR FS < 60 - SS PRN PRN Reason: FS < 60 Docusate Sodium (Colace Cap*) 100 mg PO QPM PRN PRN Reason: CONSTIPATION Gabapentin (Neurontin Cap(*)) 300 mg PO TID PRN PRN Reason: NEUROPATHY Heparin Sodium (Porcine) (Heparin Vial(*)) 5,000 units SUBCUT Q8HR [facility] Last Admin: 03/31/19 14:17 Dose: 5,000 units Ceftriaxone Sodium 1 gm/ (Sodium Chloride) 50 mls @ 200 mls/hr IVPB Q24H [facility] Last Admin: 03/31/19 14:17 Dose: 200 mls/hr Insulin Human Lispro (Humalog*) 0 units SUBCUT [facility]; Protocol Last Admin: 03/31/19 12:55 Dose: Not Given Losartan Potassium (Cozaar Tab*) 50 mg PO QAM [facility]; Protocol Last Admin: 03/31/19 07:49 Dose: 50 mg Morphine Sulfate (Morphine Inj (Syringe))*) 2 mg IV Q4H PRN PRN Reason: PAIN - MILD Last Admin: 03/30/19 06:07 Dose: 2 mg Multivitamins/Minerals (Theragran/Minerals Tab*) 1 tab PO QAM [facility] Last Admin: 03/31/19 07:48 Dose: 1 tab Oxybutynin Chloride (Ditropan Tab*) 10 mg PO DAILY [facility] Last Admin: 03/31/19 07:47 Dose: 10 mg Pantoprazole Sodium (Protonix Tab*) 40 mg PO DAILY [facility] Last Admin: 03/31/19 07:48 Dose: 40 mg Vital Signs - 8 hr 03/31/19 03/31/19 11:05 15:34 Temperature 98.1 F 98.0 F Pulse Rate 64 63 Respiratory 12 16 Rate Blood Pressure 138/81 128/62 (mmHg) O2 Sat by Pulse 100 99 Oximetry Oxygen Devices in Use Now: None Appearance: awake, alert. no distress Eyes: No Scleral Icterus, - - EOMI Ears/Nose/Mouth/Throat: NL Teeth, Lips, Gums, Mucous Membranes Moist Neck: NL Appearance and Movements; NL JVP, Trachea Midline Respiratory: Symmetrical Chest Expansion and Respiratory Effort, Clear to Auscultation Cardiovascular: NL Sounds; No Murmurs; No JVD, RRR, No Edema Abdominal: NL Sounds; No Tenderness; No Distention Extremities: No Edema Skin: No Rash or Ulcers Neurological: Alert and Oriented x 3 Result Diagrams: 03/31/19 07:00 03/31/19 07:00 Microbiology and Other Data: Microbiology 03/30/19 00:10 Urine Culture - Preliminary Urine Escherichia Coli Assess/Plan/Problems-Billing Assessment: 63 y/o female presented with abdominal pain secondary to sigmoid volvulus s/p flex-sig volvulus detorsion 03/30/19 - Patient Problems (1) Sigmoid volvulus Current Visit: Yes Status: Acute Comment: - Her abdominal pain secondary to sigmoid volvulus s/p flex-sig volvulus detorsion 03/30/[address] Lancaster - tolerated clear clear liquid will advance to full liquid and soft as tolerated. - follow up progress in am, if stable may be discharged. - full colonoscopy once she return to [place] (her home state) (2) Diabetes Current Visit: Yes Status: Acute Code(s): E11.9 - TYPE 2 DIABETES MELLITUS WITHOUT COMPLICATIONS SNOMED Code(s): 16827349 Comment: - Place on Accu check QAC + HS - hold metformin (3) HLD (hyperlipidemia) Current Visit: Yes Status: Acute Code(s): E78.5 - HYPERLIPIDEMIA, UNSPECIFIED SNOMED Code(s): 44859839 Comment: - Continue Atorvastatin 80 mg HS (4) Morbid obesity Current Visit: No Status: Acute Code(s): E66.01 - MORBID (SEVERE) OBESITY DUE TO EXCESS CALORIES SNOMED Code(s): 323660222 Comment: - s/p sleeve - resume her vitamin supplements (5) Hypertension Current Visit: Yes Status: Acute Code(s): I10 - ESSENTIAL (PRIMARY) HYPERTENSION SNOMED Code(s): 61650550 Comment: - Continue ARB losartan 50 mg (micardis 40 mg At home) (6) Anxiety and depression Current Visit: Yes Status: Acute Code(s): F41.9 - ANXIETY DISORDER, UNSPECIFIED; F32.9 - MAJOR DEPRESSIVE DISORDER, SINGLE EPISODE, UNSPECIFIED SNOMED Code(s): 119415688 Comment: - Continue wellbutrin 300 daily and buproprion 15 mg QID (7) DVT prophylaxis Current Visit: Yes Status: Acute Code(s): Z29.9 - ENCOUNTER FOR PROPHYLACTIC MEASURES, UNSPECIFIED SNOMED Code(s): 549049752 Comment: heparin sc
[2019-03-31] MEDS: Atorvastatin* 80 MG TAB PO SCH (17:40)
[2019-04-01] MEDS: Heparin VIAL(*) 5000 UNITS/ML VIAL (FIVE THOUSAND) SUBCUT SCH (06:19)
[2019-04-01] MEDS: Insulin LISPRO* 1 UNITS UNIT SUBCUT SCH ×2 (07:49→11:53)
[2019-04-01] MEDS: Cholecalciferol TAB* 1000 UNITS PO SCH (08:00)
[2019-04-01] MEDS: Pantoprazole TAB * 40 MG TAB PO SCH (08:01)
[2019-04-01] MEDS: buPROPion SR TAB.SR* 150 MG PO SCH (08:01)
[2019-04-01] MEDS: Cyanocobalamin TAB* 500 MCG PO SCH (08:01)
[2019-04-01] MEDS: Oxybutynin TAB* 5 MG PO SCH (08:02)
[2019-04-01] MEDS: Aspirin EC TAB* 81 MG TAB.EC PO SCH (08:02)
[2019-04-01] MEDS: Multivitamins/Minerals TAB PO SCH (08:03)
[2019-04-01] MEDS: busPIRone TAB* 15 MG PO SCH (08:03)
[2019-04-01] MEDS: Losartan TAB* 25 MG PO SCH (08:03)
[2019-04-01 09:37] LABS: Calcium 8.6 mg/dL (8.6-10.3); Magnesium 1.8 mg/dL (1.9-2.7)
[2019-04-01 09:43] LABS: BUN/Creatinine Ratio 8.1 (8-20); EGFR African American 80.9 (>60); EGFR Non-African American 66.9 (>60); Phosphorus 3.4 mg/dL (2.5-5.0)
[2019-04-01 13:14] VITALS: BP 157/84
--- NOTE | 2019-04-01 14:31 | DS ---
CC: Dr. Lancaster; Dr. Velasquez DISCHARGE SUMMARY: DATE OF ADMISSION: 03/30/19 DATE OF DISCHARGE: 04/01/19 FINAL DISCHARGE DIAGNOSIS: Sigmoid volvulus. ADDITIONAL SECONDARY DIAGNOSES: 1. Hypertension. 2. Hyperlipidemia. 3. Status post gastric sleeve. 4. Morbid obesity. 5. Anxiety and depression. HOSPITAL COURSE: The patient presented to [facility] 03/30[facility]19 and was admitted to the medical service on 03/30/19 secondary to abdominal pain associated with nausea, decreased oral intake without documented fever, chills, or vomiting. Given her history of surgical reduction for gastric pouch using the gastric sleeve, she was concerned, hence came into the ER to be evaluated. In the em ergency room, she had a CT scan of the abdomen and pelvis, which shows distention of the sigmoid colo n with volvulus in counterclockwise direction and moderate distention of the proximal colon. She was admitted to medical service for sigmoid volvulus and she underwent flex sigmoid detorsion of her sig moid portion. Recommended rectal tube postprocedure and sips of clear. She was seen by me on the mor lorenza of 03/31/19. Her rectal tube has fallen. The patient reports no abdominal discomfort. She was advanced to full liquid diet and then by supper last night she was placed on soft mechanical. She w as seen and evaluated this morning. She tolerated her breakfast, she is in good spirits, no pain, daria wel movement, passing gas, and she was maintained on the diet and reassessed in the afternoon and was deemed stable for discharge with no abdominal discomfort. DISCHARGE MEDICATIONS: Resume home meds as follows: 1. Multivitamin once a day. 2. Micardis 40 mg daily. 3. Colace p.r.n. 4. Tylenol p.r.n. 5. Aspirin 81 mg daily. 6. Neurontin 300 t.i.d. as needed. 7. Lasix 20 mg every morning. 8. BuSpar 15 mg t.i.d. 9. Vitamin D with calcium supplementation. 10. Loratadine 10 daily. 11. Lipitor 80 daily. 12. Wellbutrin 300 daily. 13. Metformin 250 daily. 14. Ditropan 10 every day. 15. Vitamin B12 500 mcg daily. 16. Omeprazole 40 mg daily. INPATIENT DIAGNOSTIC STUDIES: CT scan of the abdomen and pelvis reveals distention of the sigmoid co rashard with torsion counterclockwise and distention of her proximal bowel. No free air. PROCEDURE: Flex sigmoidoscopy and detorsion and decompression of the sigmoid volvulus by Dr. Lancaster . CONSULTATION: GI with Dr. Lancaster. PHYSICAL EXAMINATION: Temperature 98.1, pulse 73, respiratory rate 14, satting 100%, blood pressure 154/84. General: She is awake, alert, resting, in no distress. Head and Neck: Normocephalic, atra umatic. Supple. No JVD. No carotid bruits. Lungs: Clear to auscultation bilaterally. Cardiovasc ular: S1, S2. Regular rate and rhythm. Abdomen: Positive bowel sounds. Soft, nontender, nondisten ded. No rebound. No guarding. Extremities: She does have right lower extremity Unna boot in place . She is managed at home from an old wound ulcer. She is managed at wound clinic in [place] and she has all the wound dressings and her nurse is an [employer] visiting from [place] for Thanksgiving and is pl anning to go back to the wound clinic when she is back in [place]. DISCHARGE CONDITION: Stable. DISCHARGE DISPOSITION: Home. [id number]/[facility] #: [id number]
== END 2019-04-01 14:00 | disposition home or self-care (01) | DRG 346 ==
LOC: ED 23:22 → MED 03-30 05:25
PROVIDERS: ADMIT Student in an Organized Health Care Education/Training Program; ATTEND Internal Medicine
PROC: 0DSN8ZZ Reposition Sigmoid Colon, Via Natural or Artificial Opening Endoscopic (ICD-10-PCS; principal; 2019-03-30)
PROC: 0D9N80Z Drainage of Sigmoid Colon with Drainage Device, Via Natural or Artificial Opening Endoscopic (ICD-10-PCS; 2019-03-30)
DX: K56.2 Volvulus (principal); I10 Essential (primary) hypertension; E11.9 Type 2 diabetes mellitus without complications; E78.5 Hyperlipidemia, unspecified; E66.01 Morbid (severe) obesity due to excess calories; F41.9 Anxiety disorder, unspecified; F32.9 Major depressive disorder, single episode, unspecified; E78.00 Pure hypercholesterolemia, unspecified; M19.011 Primary osteoarthritis, right shoulder; M17.12 Unilateral primary osteoarthritis, left knee; Z87.891 Personal history of nicotine dependence; Z79.82 Long term (current) use of aspirin; Z98.84 Bariatric surgery status; Z88.6 Allergy status to analgesic agent; Z68.34 Body mass index [BMI] 34.0-34.9, adult; Z79.84 Long term (current) use of oral hypoglycemic drugs; Z79.899 Other long term (current) drug therapy
CPT/HCPCS: 36415; 74177; 80048; 80053; 81003; 81015; 83605; 83690; 83735; 84100; 85025; 85610; 86140; 87077; 87086; 87186; 99285; A9270-GY; J0696; J1644; J2250; J2270; J3010; J3475; J3480; Q9967